=== PATIENT | female | born 1995 | race Asian ===

== ENCOUNTER 2017-01-08 09:33 | Emergency (ER) | payer OTHER ==
[~2017-01-08] VITALS: Ht 157.5 cm; Wt 52.0 kg
[2017-01-08] MEDS ORDERED: METHYLPREDNISOLONE 125 MG VIAL IV STA (09:38)
[2017-01-08] MEDS ORDERED: RANITIDINE HCL 50 MG/100 ML D5W IV STA (09:38)
[2017-01-08] MEDS ORDERED: SODIUM CHLORIDE 0.9% 1000ML 1,000 ML IV STA (09:38)
[2017-01-08 09:39] VITALS: TEMP 36.6; Ht 157.5 cm; Wt 52.0 kg
--- NOTE | 2017-01-08 10:25 | EMERGENCY ROOM VISIT NOTE ---
History Report prepared by Dorian: Austyn Mayfield Under the Supervision of: Dr. Dario Barreto M.D. First contact with patient: 09:37 Stated Complaint: ALLERGIC REACTION History of Present Illness The patient is a 21 year old female who presents to the Emergency Room with complaints of a sudden allergic reaction that occurred prior to arrival. The patient states that she ate a granola bar with almonds this morning, which she admits she has eaten before. The patient reports that she first started to experience itchiness, which was then followed by shortness of breath, ear soreness, and general facial soreness. She was brought into the ED via EMS where they gave her 50 mg of Benadryl. The patient reports that she started to shake following the administration of Benadryl, but admits she started to feel a relief of symptoms. The patient denies any previous allergic reaction to almonds, but admits she had a mild reaction to spinach in the past. 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 Source of History: patient Onset: prior to arrival Position: other (global) Timing: other (sudden) Modifying Factors (Worsening): other (eating almonds) Modifying Factors (Relieving): other (Benadryl) Associated Symptoms: + SOB Review of Systems See HPI for pertinent positives & negatives. A total of 10 systems reviewed and were otherwise negative. Past Medical & Surgical Surgical Problems: (1) History of tooth extraction Family History Heart disease Social History Smokeless Tobacco Use: No Alcohol Use: occasionally Drug Use: none Marital Status: single Housing Status: lives with roommate Occupation Status: employed, student Current/Historical Medications Scheduled Control Pills ( Control Pills), 1 TAB PO DAILY Epinephrine (Epipen), 0.3 MG IM UD Prednisone (Prednisone Tab), 0 PO DAILY Ranitidine Hcl (Zantac), 150 MG PO BID Allergies Coded Allergies: No Known Allergies (Unverified , 01/08/17) Physical Exam Vital Signs Date Time Temp Pulse Resp B/P (MAP) Pulse Ox O2 Delivery O2 Flow Rate FiO2 01/08/17 11:42 98 16 101/60 98 01/08/17 11:20 82 20 137/72 99 Room Air 01/08/17 09:40 102 01/08/17 09:39 36.6 103 20 111/70 99 Room Air 01/08/17 09:39 99 Room Air Physical Exam GENERAL: Patient is a healthy-appearing well-nourished 21 year old female who is shaking uncontrollably. HEAD: Normocephalic atraumatic EYES: Ocular movements intact pupils equal and react to light OROPHARYNX mucous membranes are moist no exudates present no erythema or edema present NECK: Supple no nuchal rigidity. No stridor. CHEST: Good equal expansion LUNGS: Clear and equal to auscultation. No wheezing. CARDIAC: Normal S1 and S2 ABDOMEN: Soft nontender no guarding BACK: No CVA tenderness EXTREMITIES: No pain upon palpation normal muscle strength in all groups no clubbing cyanosis or edema NEURO: Patient is following commands and answering questions appropriately. Alert and oriented x3 Cranial Nerves 2-12 grossly intact Medical Decision & Procedures Medications Administered Medications (Trade) Dose Ordered Sig/Saw Route Start Time Stop Time Status Last Admin Dose Admin Sodium Chloride 1,000 ml @ 999 mls/hr Q1H1M STAT IV 01/08/17 09:38 01/08/17 10:38 DC 01/08/17 09:52 999 MLS/HR Methylprednisolone Sodium Succinate (Solu-Medrol IV) 125 mg NOW STAT IV 01/08/17 09:38 01/08/17 09:40 DC 01/08/17 09:52 125 MG Ranitidine HCl (zANTac IV) 50 mg NOW STAT IV 01/08/17 09:38 01/08/17 09:40 DC 01/08/17 09:52 50 MG ED Course 0934: Past medical records reviewed. The patient was evaluated in room B09. A complete history and physical examination was performed. 0938: Zantac IV 50 mg IV, Solu-Medrol IV 125 mg IV, Sodium chloride 1000 ml @ 999 mls/hr IV. 1115: Upon reexamination the patient is doing well. I discussed results and treatment plan with the patient. She verbalizes agreement and understanding. The patient is ready for discharge. Medical Decision The differential diagnosis includes but is not limited to: etiologies such as allergic reaction, anaphylaxis, urticaria, Jimenez-Mega syndrome, toxic epidermal necrolysis, erythema multiforme, cellulitis, as well as others were entertained. Medication Reconciliation: I attest that I have personally reviewed the patient' s current medication list Blood Pressure Screening: Patient was found to have normal blood pressure on screening and does not require follow up. This is a 21-year-old female who presents emergency department complaining of allergic reaction. The patient has never had a reaction like this to for however she was given epinephrine by EMS. IV was established, patient given normal saline bolus, Solu-Medrol, Zantac. The patient was observed for a total of 2 hours in the emergency department and she did not have any evidence of the reaction returning. Based on these findings I feel the patient can be safely discharged home. I discussed this with both patient. She will be placed on a prednisone taper as well as Zantac. Patient was in agreement with the treatment plan. Patient was also written for EpiPen's. Impression Primary Impression: Allergic reaction Scribe Attestation The scribe's documentation has been prepared under my direction and personally reviewed by me in its entirety. I confirm that the note above accurately reflects all work, treatment, procedures, and medical decision making performed by me. Departure Information Dispostion Home / Self-Care Prescriptions Ranitidine Hcl (ZANTAC) 150 Mg Tab 150 MG PO BID for 7 Days, #14 TAB Prov: Dario Barreto MD 01/08/17 Prednisone (Prednisone Tab) 20 Mg Tab 0 PO DAILY, #7 TAB 2 TABS DAILY FOR 2 DAYS, THEN 1 TAB DAILY FOR 2 DAYS, THEN 1/2 TAB DAILY FOR 2 DAYS. Prov: Dario Barreto MD 01/08/17 Epinephrine (EPIPEN) 0.3 Mg/0.3 Ml Inj 0.3 MG IM UD, #2 BOX Prov: Dario Barreto MD 01/08/17 Referrals No Doctor, Assigned (PCP) Forms HOME CARE DOCUMENTATION FORM, IMPORTANT VISIT INFORMATION Patient Instructions ED Allergic Reaction General Other, First Aid Allergic React, My [facility] Additional Instructions Take 50 mg Benadryl as needed every 6 hours You have been examined and treated today on an emergency basis only. This is not a substitute for, or an effort to provide, complete comprehensive medical care. It is impossible to recognize and treat all injuries or illnesses in a single emergency department visit. It is therefore important that you follow up closely with [facility]. Call as soon as possible for an appointment. Thank you for your time and consideration. I look forward to speaking with you again soon. Please don't hesitate to call us if you have any questions. Problem Qualifiers Primary Impression: Allergic reaction Encounter type: initial encounter Qualified Codes: T78.40XA - Allergy, unspecified, initial encounter
[2017-01-08] MEDS ORDERED: PRED20TA2 PO (11:19)
[2017-01-08] MEDS ORDERED: RANI150T3 PO (11:19)
[2017-01-08] MEDS ORDERED: EPP3/2 IM (11:19)
[2017-01-08] MEDS ORDERED: BCPILLS PO (11:27)
[2017-01-08 11:42] VITALS: BP 101/60; PULSE 98; O2SAT 98
== END 2017-01-08 11:47 | disposition home or self-care (01) ==
LOC: C.EDB 09:37
DX: T78.40XA Allergy, unspecified, initial encounter (principal); X58.XXXA Exposure to other specified factors, initial encounter; Z82.49 Family history of ischemic heart disease and other diseases of the circulatory system